=== PATIENT | male | born 1965 | race Caucasian/White ===

== ENCOUNTER 2016-11-19 12:06 | Emergency (ER) | payer OTHER ==
[~2016-11-19] VITALS: Ht 167.6 cm; Wt 101.0 kg
[~2016-11-19 12:06] MED LIST: FERR-89 PO; FURO40TA5 PO; INSLAN SQ; LOSA100T29 PO; LOSA50TA37 PO; METF850T2 PO; POTA10TA10 PO; PSYL0.529 PO
[2016-11-19] MEDS ORDERED: 0.9% SODIUM CHLORIDE 10 ML SYRINGE IVP PRN (12:45)
[2016-11-19] MEDS ORDERED: DEXTROSE 5%-0.9% SODIUM CHL 1,000 ML IV ONE (12:45)
[2016-11-19 12:57] LABS: GLUCOSE,POINT OF CARE 148 MG/DL (70-110)
[2016-11-19 13:31] LABS: BASOPHILS % (AUTO) 0.1 % (0.0-2.0); EOSINOPHILS % (AUTO) 1.1 % (1.0-6.0); HEMATOCRIT 32.3 % (41-53); HEMOGLOBIN 10.5 g/dL (13.5-17.5); LYMPHOCYTES # (AUTO) 0.6 K/uL (1.0-4.8); LYMPHOCYTES % (AUTO) 4.3 % (22.0-44.0); MEAN CORPUSCULAR HEMOGLOBIN 30.5 pg (26.0-34.0); MEAN CORPUSCULAR HGB CONC 32.5 G/dL (31.0-37.0); MEAN CORPUSCULAR VOLUME 94 fL (80-100); MONOCYTES % (AUTO) 6.7 % (2.0-9.0); NEUTROPHILS # (AUTO) 12.7 K/uL (1.8-7.7); PLATELET COUNT (AUTO) 261 K/uL (150-450); RED BLOOD CELL COUNT(AUTO) 3.44 MIL/uL (4.50-5.90); RED CELL DISTRIBUTION WIDTH 22.4 % (11.5-14.5); WHITE BLOOD COUNT (AUTO) 14.5 K/uL (4.5-11.0)
[2016-11-19 13:33] LABS: NEUTROPHILS % (AUTO) 87.8 % (40.0-70.0)
[2016-11-19 13:42] LABS: ANION GAP 13 mmol/L (8-16); CALCIUM, TOTAL 8.3 mg/dL (8.8-10.5); CARBON DIOXIDE 25 mmol/L (22-29); CHLORIDE 102 mmol/L (98-107); CREATININE 4.38 mg/dL (0.60-1.30); GLOMERULAR FILTR. RATE CALC 14 mL/min (>60); POTASSIUM 3.7 mmol/L (3.5-5.1); SODIUM SERUM 140 mmol/L (136-145); UREA NITROGEN, BLOOD 39 mg/dL (7-18)
[2016-11-19 13:45] LABS: INR 1.3 (0.9-1.1); PROTHROMBIN TIME 13.5 SEC (9.4-11.6)
[2016-11-19 13:49] LABS: LACTIC ACID 0.8 mmol/L (0.4-2.0)
[2016-11-19 13:53] LABS: B-TYPE NATRIURETIC PEPTIDE 529 pg/mL (0-100)
[2016-11-19 13:55] LABS: RBC MORPHOLOGY COMMENT ABNORMAL RBC MORPH
[2016-11-19 13:56] LABS: ALANINE AMINOTRANSFERASE 19 U/L (12-78); ALBUMIN 3.3 g/dL (3.4-5.0); ASPARTATE AMINOTRANSFERASE 12 U/L (15-37); BILIRUBIN,TOTAL 0.5 mg/dL (0.1-1.0); CREATINE KINASE, TOTAL 19 U/L (39-308); TOTAL PROTEIN, SERUM 7.4 g/dL (6.4-8.2); VALPROIC ACID 18 mcg/mL (50-100)
[2016-11-19 14:12] LABS: GLUCOSE,POINT OF CARE 200 MG/DL (70-110)
[2016-11-19] MEDS ORDERED: SODIUM CHLORIDE 0.9% 1,000 ML IV ONE ×2 (16:25→16:45)
[2016-11-19 16:27] LABS: GLUCOSE,POINT OF CARE 132 MG/DL (70-110)
[2016-11-19 18:02] LABS: GLUCOSE,POINT OF CARE 94 MG/DL (70-110)
[2016-11-19] MEDS ORDERED: CefTRIAXone 1 GM/DEXTROSE 50 ML IV ONE (19:15)
[2016-11-19] MEDS ORDERED: DiphenhydrAMINE HCL 50 MG/ML VIAL IVP ONE (19:30)
[2016-11-19] MEDS ORDERED: LEVOFLOXACIN 500 MG/D5% WATER 100 ML IV ONE (19:30)
[2016-11-19] MEDS ORDERED: MethylPREDNISolone SOD SUCC 125 MG/2 ML VIAL IVP ONE (19:30)
[2016-11-19 20:27] LABS: GLUCOSE,POINT OF CARE 144 MG/DL (70-110)
[2016-11-19 21:01] VITALS: BP 150/72
== END 2016-11-19 22:00 | disposition home or self-care (01) ==
LOC: EMS 12:08
DX: E16.2 Hypoglycemia, unspecified (principal); N39.0 Urinary tract infection, site not specified; Z79.4 Long term (current) use of insulin
CPT/HCPCS: 36415; 71010; 80053; 80164; 82550; 82962; 83605; 83880; 84484; 85025; 85610; 85730; 87040; 93005; 96361; 96365; 96366; 96368; 96375; 99285; J0696; J1200; J1956; J2930; J7030; J7042

== ENCOUNTER 2018-01-17 09:32 | Emergency (ER) | payer OTHER ==
[~2018-01-17] VITALS: Ht 152.4 cm; Wt 84.2 kg
[~2018-01-17 09:32] MED LIST changes: +LOSA100T20 PO; -LOSA100T29 PO; +LOSA50TA26 PO; -LOSA50TA37 PO; +METF-961 PO; -METF850T2 PO
[2018-01-17] MEDS ORDERED: AMLO-511 PO (09:53)
[2018-01-17] MEDS ORDERED: SENN-175 PO (09:53)
[2018-01-17] MEDS ORDERED: CYAN100 PO (09:53)
[2018-01-17] MEDS ORDERED: SERT50TA12 PO (09:53)
[2018-01-17] MEDS ORDERED: DOCU250C91 PO (09:53)
[2018-01-17] MEDS ORDERED: FOLI1TAB61 PO (09:53)
[2018-01-17] MEDS ORDERED: DIVA-76 PO (09:53)
[2018-01-17] MEDS ORDERED: AMLO-512 PO (09:53)
[2018-01-17] MEDS ORDERED: INSNOV SQ (09:53)
[2018-01-17] MEDS ORDERED: EPOE10003 INJ (09:53)
[2018-01-17] MEDS ORDERED: TAMS0.4C32 PO (09:53)
[2018-01-17] MEDS ORDERED: ATOR10TA84 PO (09:53)
[2018-01-17] MEDS ORDERED: SEVE800 PO (09:53)
[2018-01-17 10:42] LABS: BASOPHILS % (AUTO) 0.5 % (0.0-2.0); EOSINOPHILS % (AUTO) 0.8 % (1.0-6.0); HEMATOCRIT 36.1 % (41-53); HEMOGLOBIN 11.9 g/dL (13.5-17.5); LYMPHOCYTES % (AUTO) 11.6 % (22.0-44.0); MEAN CORPUSCULAR HEMOGLOBIN 32.8 pg (26.0-34.0); MEAN CORPUSCULAR HGB CONC 32.9 G/dL (31.0-37.0); MEAN CORPUSCULAR VOLUME 99 fL (80-100); MONOCYTES # (AUTO) 0.8 K/uL (0.1-1.0); MONOCYTES % (AUTO) 4.6 % (2.0-9.0); NEUTROPHILS # (AUTO) 14.4 K/uL (1.8-7.7); NEUTROPHILS % (AUTO) 82.5 % (40.0-70.0); PLATELET COUNT (AUTO) 178 K/uL (150-450); RED BLOOD CELL COUNT(AUTO) 3.63 MIL/uL (4.50-5.90); RED CELL DISTRIBUTION WIDTH 15.2 % (11.5-14.5)
[2018-01-17 10:52] LABS: CALCIUM, TOTAL 9.1 mg/dL (8.8-10.5); CREATININE 6.8 mg/dL (0.60-1.30); POTASSIUM 5.1 mmol/L (3.5-5.1)
[2018-01-17 10:58] LABS: GLUCOSE,POINT OF CARE 134 MG/DL (70-110)
[2018-01-17 12:34] VITALS: BP 134/75
[2018-01-17 12:44] LABS: GLUCOSE,POINT OF CARE 119 MG/DL (70-110)
== END 2018-01-17 14:37 | disposition home or self-care (01) ==
LOC: EMS 09:35
DX: E11.649 Type 2 diabetes mellitus with hypoglycemia without coma (principal); E11.22 Type 2 diabetes mellitus with diabetic chronic kidney disease; I12.0 Hypertensive chronic kidney disease with stage 5 chronic kidney disease or end stage renal disease; N18.6 End stage renal disease; T68.XXXA Hypothermia, initial encounter; D72.829 Elevated white blood cell count, unspecified; F32.9 Major depressive disorder, single episode, unspecified; E78.00 Pure hypercholesterolemia, unspecified; I95.9 Hypotension, unspecified; N40.0 Benign prostatic hyperplasia without lower urinary tract symptoms; G80.9 Cerebral palsy, unspecified; Z86.718 Personal history of other venous thrombosis and embolism; Z88.1 Allergy status to other antibiotic agents; Z99.2 Dependence on renal dialysis; Z79.4 Long term (current) use of insulin
CPT/HCPCS: 82948; 99284